=== PATIENT | female | born 1985 | race Caucasian/White ===

== ENCOUNTER 2024-10-27 04:07 | Emergency (ER) | payer MEDICAID ==
[~2024-10-27] VITALS: Ht 160 cm; Wt 54.0 kg
[2024-10-27 04:17] VITALS: BP 113/87; PULSE 99; RESP 18; TEMP 36.8; O2SAT 98
== END 2024-10-27 06:27 | disposition left against medical advice (07) ==
LOC: ER 04:07
DX: R11.10 Vomiting, unspecified (principal); Z53.21 Procedure and treatment not carried out due to patient leaving prior to being seen by health care provider

== ENCOUNTER 2025-01-19 08:44 | Emergency (ER) | payer MEDICAID ==
[~2025-01-19] VITALS: Ht 162.6 cm; Wt 67.0 kg
[2025-01-19 08:49] VITALS: BP 131/76; TEMP 36.8; O2SAT 98
[2025-01-19 08:52] VITALS: PULSE 109; RESP 20; O2SAT 99
== END 2025-01-19 10:00 | disposition left against medical advice (07) ==
LOC: ER 09:52
DX: R06.02 Shortness of breath (principal); I10 Essential (primary) hypertension; Z53.21 Procedure and treatment not carried out due to patient leaving prior to being seen by health care provider
CPT/HCPCS: 93005; 99281